=== PATIENT | female | born 1985 | race Two or more races ===

== ENCOUNTER 2019-10-23 14:28 | Emergency (ER) | payer OTHER, SELFPAY ==
--- NOTE | ~2019-10-23 | CT_ITS ---
EXAMINATION: CT lumbar spine ariela morrow EXAM DATE: 10/23/2019 14:57 INDICATION: Initial encounter following injury, with pain of the low back. Unable to lay on back. TECHNIQUE: Spiral CT lumbar spine was performed without contrast. Axial, coronal and sagittal images of the lumbar spine were reviewed. The dose-length product (DLP) for this examination was 204.57 mGy- cm. The exposure was tailored according to patient size (auto mA exposure control), and iterative re construction (ASIR) was used as additional dose reduction technique. There is no prior study for joon coleman. FINDINGS: There is no evidence of acute lumbar fracture. There is no disc space widening or traumat ic vertebral body subluxation suspected. Paraspinal soft tissue is unremarkable. Vertebral body and disc heights are well-maintained. The vertebral bodies are aligned in the AP dimension. Vertebral b nedra and disc heights are well-maintained. A detailed level by level evaluation of spondylosis can be added as addendum if requested. IMPRESSION: 1. No acute lumbar findings. Reviewed, dictated and finalized at location A.
--- NOTE | ~2019-10-23 | CT_ITS ---
EXAMINATION: CT pelvis wo con EXAM DATE: 10/23/2019 14:57 INDICATION: Fall, low back and tailbone pain. TECHNIQUE: Spiral CT pelvis was performed without contrast. Axial, coronal and sagittal images wer e reviewed. The dose-length product (DLP) for this examination was 258.54 mGy-cm. The exposure was tailored according to patient size (auto mA exposure control), and iterative reconstruction (ASIR) wa s used as additional dose reduction technique. There is no prior study for comparison. FINDINGS: There are no acute fractures identified. Patient has an IUD in expected position. Bladder i s unremarkable. No pelvic lymphadenopathy. IMPRESSION: Unremarkable CT pelvis exam. Reviewed, dictated and finalized at location A.
--- NOTE | 2019-10-23 14:28 | ED.LOWEXIN ---
HPI - Extremity Injury (Lower) General Chief Complaint: Fall Stated Complaint: tailbone pain after fall Source: patient and family Mode of arrival: EMS Limitations: no limitations History of Present Illness HPI Narrative: Patient is a 34-year-old previously healthy female who presents for evaluation of tailbone pain. Patient reportedly slipped on a staircase, landed on her bottom and then subsequently fell down 4 steps. Patient is reporting severe pain in her bottom. She denies any numbness or saddle anesthesia. No hip pain, no knee pain or ankle pain. Patient denies head trauma or loss of consciousness. EMS transported patient due to pain and difficulty with ambulation due to the pain. Patient denies upper back pain or neck pain. Related Data Allergies Allergy/AdvReac Type Severity Reaction Status Date / Time No Known Allergies Allergy Verified 10/23/19 14:36 Review of Systems Review of Systems: Narrative: CONSTITUTIONAL: Denies fever CARDIOVASCULAR: Denies chest pain RESPIRATORY: Denies cough or dyspnea. GASTROINTESTINAL: Denies abdominal pain SKIN: Denies rash MUSCULOSKELETAL: Reports lower back pain and tailbone pain NEUROLOGIC: Denies headache [facility] Past Medical History Medical History (Updated 10/23/19 @ 15:23 by Miley Gregorio MD) No pertinent past medical history Surgical History Surgical History (Updated 10/23/19 @ 14:38 by Miley Gregorio MD) H/O section Social History Social History (Updated 10/23/19 @ 14:38 by Miley Gregorio MD) Smoking status: Never smoker Alcohol intake: never Substance use: never Living arrangements: with family Gender identity (if verbalized by the patient): Female Exam Narrative: Exam Narrative: GENERAL: Awake, alert, conversant HEAD: Normocephalic, atraumatic. EYES: PERRLA and EOMI. ENT: Nares clear, no rhinorrhea or epistaxis. Mucous membranes moist. NECK: Supple. CHEST: No respiratory distress, breathing even and non labored HEART: Regular rate, sinus rhythm ABDOMEN:Non distended, non tender EXTREMITIES: Normal range of motion. No edema. SKIN: Warm, dry, no rash. NEURO:No focal deficits. Alert and oriented x3 Course Vital Signs Vital signs: Vital Signs Temperature 36.8 C 10/23/19 14:32 Pulse Rate 72 10/23/19 14:32 Respiratory Rate 18 10/23/19 14:32 Blood Pressure 118/70 10/23/19 14:32 Pulse Oximetry 100 10/23/19 14:32 Temperature 36.8 C 10/23/19 14:32 Pulse Rate 72 10/23/19 14:32 Respiratory Rate 18 10/23/19 14:32 Blood Pressure 118/70 10/23/19 14:32 Pulse Oximetry 100 10/23/19 14:32 MDM - Extremity Injury (Lower) MDM Narrative Medical decision making narrative: Patient presented for evaluation of sacral pain following a fall. No head trauma or loss of consciousness. Patient is neurologically intact. She is ambulatory but is more limited just due to pain. No saddle anesthesia, difficulty with urination. Imaging shows no acute lumbar, pelvic fracture or coccygeal, sacral fracture. Pt ambulatory with improved pain control. Pt advised various remedies she can do at home to help with pain. As ambulatory, pain controlled, no neurological symptoms, pt discharged home. Differential Diagnosis Differential diagnosis: Likely other (Pelvic fracture, coccygeal fracture, vertebral fracture, hematoma, contusion) Imaging Data Radiologist's impression: ITS Impressions Lumbar Spine CT 10/23/19 15:05 IMPRESSION: 1. No acute lumbar findings. Pelvis CT 10/23/19 15:08 IMPRESSION: Unremarkable CT pelvis exam. Discharge Plan Discharge Clinical Impression: Acute coccygeal pain Patient Disposition: Home, Self-Care Condition: Stable Instructions: Coccyx Injury (ED) Additional Instructions: The imaging of your lumbar spine, pelvis including the sacrum, coccyx showed no fracture. No other pelvic fracture. You can still bruised this area and have quite a
[2019-10-23 14:32] VITALS: BP 118/70; PULSE 72; RESP 18; TEMP 36.8; O2SAT 100
[2019-10-23] MEDS: oxyCODONE/ACETAMINOPHEN 5-325 MG TABLET 1 TABLET PO (14:40)
== END 2019-10-23 15:32 | disposition home or self-care (01) ==
PROVIDERS: Emergency Provider Emergency Medicine
DX: M54.5 Low back pain (principal); W10.9XXA Fall (on) (from) unspecified stairs and steps, initial encounter
CPT/HCPCS: 72131; 72192; 99284; A9270

== ENCOUNTER 2020-09-08 16:30 | Emergency (ER) | payer OTHER, SELFPAY ==
[2020-09-08 17:07] VITALS: BP 127/74; PULSE 72; RESP 16; TEMP 37; O2SAT 100
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
== END 2020-09-08 17:48 | disposition home or self-care (01) ==
PROVIDERS: Emergency Provider Emergency Medicine; PCP Family Medicine
DX: S29.011A Strain of muscle and tendon of front wall of thorax, initial encounter (principal); V49.50XA Passenger injured in collision with unspecified motor vehicles in traffic accident, initial encounter
CPT/HCPCS: 99212; G0463